=== PATIENT | male | born 1975 | race Caucasian/White ===

== ENCOUNTER 2017-12-19 11:35 | Emergency (ER) | payer OTHER ==
[~2017-12-19] VITALS: Ht 170.2 cm; Wt 57.7 kg
[2017-12-19] MEDS ORDERED: ZOFRAN ODT4 MG PO (12:30)
[2017-12-19 13:16] VITALS: BP 110/71
== END 2017-12-19 13:16 | disposition home or self-care (01) ==
LOC: EME 11:35
DX: J11.1 Influenza due to unidentified influenza virus with other respiratory manifestations (principal); R11.2 Nausea with vomiting, unspecified; F17.200 Nicotine dependence, unspecified, uncomplicated
CPT/HCPCS: 99281; 99284

== ENCOUNTER 2018-01-14 10:35 | Emergency (ER) | payer OTHER ==
[~2018-01-14] VITALS: Ht 170.2 cm; Wt 62.3 kg
[~2018-01-14 10:35] MED LIST: ZOFRAN ODT4 MG PO
[2018-01-14] MEDS ORDERED: ATARAX,VISTARIL25 MG PO (11:49)
[2018-01-14] MEDS ORDERED: ZOLOFT50 MG PO (11:49)
[2018-01-14 12:06] VITALS: BP 121/87
== END 2018-01-14 12:08 | disposition home or self-care (01) ==
LOC: EME 10:35
DX: F41.9 Anxiety disorder, unspecified (principal); Z76.0 Encounter for issue of repeat prescription; F12.90 Cannabis use, unspecified, uncomplicated; F17.200 Nicotine dependence, unspecified, uncomplicated
CPT/HCPCS: 99281; 99284